=== PATIENT | female | born 1965 | race Caucasian/White ===

== ENCOUNTER → 2016-12-21 | Outpatient (CLI) | payer BC ==
[2016-12-21 08:36] LABS: HEMOGLOBIN 13.9 gm/dl (12.3-15.3); RED BLOOD COUNT 4.55 M/UL (4.00-5.10)
[2016-12-21 09:04] LABS: BUN/CREATININE RATIO 18 (0-10)
== END ==
LOC: LAB 07:39
PROVIDERS: Internal Medicine
DX: Z13.220 Encounter for screening for lipoid disorders (principal); Z02.89 Encounter for other administrative examinations; E55.9 Vitamin D deficiency, unspecified
CPT/HCPCS: 36415; 80053; 80061; 84439; 84443; 85025

== ENCOUNTER → 2021-01-09 | Outpatient (CLI) | payer BC | LOC: LAB 08:16 | DX: Z13.220 Encounter for screening for lipoid disorders (principal); E55.9 Vitamin D deficiency, unspecified; E03.9 Hypothyroidism, unspecified; Z79.899 Other long term (current) drug therapy | CPT/HCPCS: 80061; 84439; 84443 ==

== ENCOUNTER → 2021-07-11 | Outpatient (CLI) | payer BC ==
[2021-07-11 10:07] LABS: HEMOGLOBIN 13.9 gm/dl (12.3-15.3); RED BLOOD COUNT 4.54 M/UL (4.00-5.10); WHITE BLOOD COUNT 5.4 K/UL (4.5-11.0)
[2021-07-12 08:15] LABS: A/G RATIO 1.4 (1.2-2.2); ALKALINE PHOSPHATASE, S 84 IU/L (44-121); ALT (SGPT) 16 IU/L (0-32); AST (SGOT) 19 IU/L (0-40); BILIRUBIN, TOTAL 0.4 mg/dL (0.0-1.2); BUN 16 mg/dL (6-24); BUN/CREATININE RATIO 20 (9-23); CALCIUM, SERUM 9.2 mg/dL (8.7-10.2); CARBON DIOXIDE, TOTAL 25 mmol/L (20-29); CHLORIDE, SERUM 105 mmol/L (96-106); CHOLESTEROL, TOTAL 185 mg/dL (100-199); CREATININE, SERUM 0.79 mg/dL (0.57-1.00); EGFR IF AFRICN AM 97 (>59); EGFR IF NONAFRICN AM 85 (>59); GLUCOSE, SERUM 86 mg/dL (65-99); HDL CHOLESTEROL 57 mg/dL (>39); LDL CHOLESTEROL CALC 116 mg/dL (0-99); POTASSIUM, SERUM 4.4 mmol/L (3.5-5.2); PROTEIN, TOTAL, SERUM 7.1 g/dL (6.0-8.5); SODIUM, SERUM 143 mmol/L (134-144); T. CHOL/HDL RATIO 3.2 ratio (0.0-4.4); TRIGLYCERIDES 65 mg/dL (0-149); VITAMIN D, 25-HYDROXY 59.8 ng/mL (30.0-100.0)
== END ==
LOC: LAB 09:26
PROVIDERS: Internal Medicine
DX: Z13.1 Encounter for screening for diabetes mellitus (principal); M25.551 Pain in right hip; M25.552 Pain in left hip; Z13.220 Encounter for screening for lipoid disorders; E55.9 Vitamin D deficiency, unspecified; E03.9 Hypothyroidism, unspecified; Z79.899 Other long term (current) drug therapy; M25.852 Other specified joint disorders, left hip; M25.851 Other specified joint disorders, right hip
CPT/HCPCS: 36415; 73522; 80053; 80061; 84439; 84443; 85025